=== PATIENT | male | born 1945 | race Caucasian/White ===

== ENCOUNTER 2017-04-06 15:43 | Inpatient (IN) ==
[2017-04-06] MEDS ORDERED: IOPAMIDOL 100 ML BOTTLE IJ ONE (15:44)
[2017-04-06] MEDS ORDERED: 0.9 % SODIUM CHLORIDE 1,000 ML IV ONE ×2 (16:01→21:20)
--- NOTE | 2017-04-06 16:29 | Emergency Department Note ---
Abdominal Pain HPI - General Chief Complaint: Abdominal Pain Stated Complaint: Abdominal pain, gas Time Seen by Provider: 04/06/17 15:54 Source: patient Mode of arrival: ambulatory Limitations: no limitations - History of Present Illness HPI Narrative: 72-year-old male presents with diarrhea that has been worsening in the last 2 days. He states 2 weeks ago he saw his doctor and was prescribed 2 antibiotics for diverticulitis. He states during the treatment for diverticulitis he had some dark stools but that improved. He states since yesterday and late last night he has been having a lot of watery diarrhea. He states he did have some firming of his stool a couple days after he finished his antibiotic and then it got worse. He feels as though he has to go to the bathroom often. He denies blood in his stool. He states it is very watery. He had an elevated temperature at home. No nausea or vomiting. No urinary symptoms. He takes lisinopril, baby aspirin, and cholesterol medication. He has been on lisinopril for 2 months. He states today he felt wiped out. He denies chest pain and had some shortness of breath earlier today but feels fine now. He denies dizziness. He feels as though he has diffuse abdominal cramping. Had a 101 degree temp at home. He was taking Cipro twice a day and Flagyl 3 times a day for his diverticulitis. - Related Data Home Medications Medication Instructions Recorded Confirmed Aspirin [Adult Low Dose Aspirin EC] 81 mg PO DAILY 04/06/17 04/06/17 Atorvastatin [Lipitor] 10 mg PO HS 04/06/17 04/06/17 Previous Rx's Medication Instructions Recorded Lisinopril [Zestril] 10 mg PO DAILY #60 tablet 12/14/16 Allergies Allergy/AdvReac Type Severity Reaction Status Date / Time No Known Drug Allergies Allergy Verified 04/06/17 15:47 Review of Systems All systems ED: reviewed and negative except as stated. Abdominal Pain PMH - Past Medical History Medical history: Reports: migraine, other (diverticulitis) Surgical history ED: Reports: non-contributory Psychiatric history: Reports: no psych history Family history: Reports: no significant family history - Social History Smoking status: Never smoker Physical Exam - General Limitations: no limitations General appearance: alert, in no apparent distress - Head Head exam: atraumatic - Eye Eye exam: Present: normal appearance. Absent: conjunctival injection - Neck Neck exam: Present: normal inspection, full ROM - Chest Chest inspection: Present: normal inspection - Respiratory Respiratory exam: Present: normal lung sounds bilaterally - Cardiovascular Cardiovascular exam: Present: tachycardia, normal heart sounds - Abdominal Exam Abdominal exam: Present: soft, tenderness, normal bowel sounds. Absent: distention, psoas sign, heel tap sign Abdominal tenderness: Present: LLQ, mild - Extremities Exam Extremities exam: Present: normal inspection, full ROM - Neurological Exam Neurological exam: Present: alert, oriented X3, CN II-XII intact - Psychiatric Psychiatric exam: Present: normal affect, normal mood - Skin Skin exam: Present: warm, dry, intact Course Course Narrative: Dr. Cabello will admit the patient - Reevaluation(s) Reevaluation #1: No longer having abdominal pain. Nontender on palpation. He had one episode of diarrhea so far. Blood pressure improved. Pulse still elevated. Time: 18:15 Reevaluation #2: He developed a fever of 103.5 and was given 650mg of Tylenol. He still was feeling well but had hot flashes Time: 20:10 Vital Signs Temperature 98.8 F 04/06/17 15:44 Pulse Rate 128 H 04/06/17 15:44 Respiratory Rate 20 04/06/17 15:44 Blood Pressure 131/72 04/06/17 15:44 Pulse Oximetry (%) 96 04/06/17 15:44 Temperature 100.5 F H 04/06/17 19:55 Pulse Rate 120 H 04/06/17 20:24 Respiratory Rate 21 04/06/17 20:24 Blood Pressure 98/73 04/06/17 20:16 Pulse Oximetry (%) 92 04/06/17 20:24 Abdominal Pain - Lab Data Lab results reviewed: Yes I reviewed the patient's lab results. Result diagrams: 04/06/17 16:23 04/06/17 16:23 Lab Results 04/06/17 04/06/17 04/06/17 Range/Units 16:23 16:23 17:07 WBC 16.6 H (4.5-11.0) K/mcL RBC 5.55 (4.50-5.90) M/mcL Hgb 17.2 H (13.5-16.5) g/dL Hct 51.2 (41.0-55.0) % MCV 92.4 (80.0-100.0) fL MCH 31.0 (26.0-34.0) pg MCHC 33.6 (31.0-36.0) g/dL RDW 13.2 (11.5-14.5) % Plt Count 248 (140-440) K/mcL MPV 8.1 (7.4-10.4) fL Total Counted 100 Seg Neutrophils % 87 H (38-78) % Band Neutrophils % 8 (0-10) % Lymphocytes % 1 L (15-49) % Monocytes % (Manual) 4 (1-12) % Platelet Estimate Normal (NORMAL) RBC Morphology Normal (NORMAL) VBG Lactic Acid 1.7 (0.5-2.2) mmol/L Sodium 134 (133-145) mmol/L Potassium 3.8 (3.3-5.1) mmol/L Chloride 95 L (96-108) mmol/L Carbon Dioxide 24 (22-30) mmol/L Anion Gap 15.0 (8-16) BUN 9 (8-23) mg/dl Creatinine 1.3 H (0.7-1.2) mg/dl GFR Calculation 55 Glucose 121 H (70-105) mg/dL Calcium 9.1 (8.6-10.4) mg/dl Total Bilirubin 1.8 H (0.0-1.0) mg/dL AST 32 (0-37) U/l ALT 36 (0-40) U/l Alkaline Phosphatase 56 (39-117) U/L Total Protein 7.2 (5.9-8.4) gm/dL Albumin 4.1 (3.2-5.2) gm/dL Globulin 3.1 (2.2-3.7) gm/dL Albumin/Globulin Ratio 1.3 (1.0-2.3) Lipase 30 (7-60) U/L - Radiology Data Radiology results reviewed: Yes I reviewed the patient's radiology results. extensive diverticulitis versus colitis throughout the colon. Gallstones in the gallbladder. No Toxic megacolon, abscesses, or perforation Disposition Pt seen by MANAGER CLINICAL RESEARCH/PA only: No Clinical Impression: C. difficile enteritis Disposition: Xfer As Inpt ([facility]) Condition: Fair Referrals: Alber Mcgraw MD [Primary Care Provider] -
[2017-04-06] MEDS ORDERED: LACTATED RINGERS 1,000 ML IV ONE (16:36)
[2017-04-06 16:53] LABS: Mean Cell Volume 92.4 fL (80.0-100.0); Mean Corpuscular HGB Conc 33.6 g/dL (31.0-36.0); Platelet Count 248 K/mcL (140-440); RBC 5.55 M/mcL (4.50-5.90); Red Cell Distribution Width 13.2 % (11.5-14.5)
[2017-04-06 17:13] LABS: ALT/SGPT 36 U/l (0-40); Albumin 4.1 gm/dL (3.2-5.2); Albumin/Globulin Ratio 1.3 (1.0-2.3); Alkaline Phosphatase 56 U/L (39-117); Blood Urea Nitrogen 9 mg/dl (8-23); Lipase 30 U/L (7-60)
[2017-04-06 17:16] LABS: Band Neutrophils % 8 % (0-10); Lymphocytes % 1 % (15-49); Monocytes % (Manual) 4 % (1-12); Platelet Estimate NORMAL (NORMAL); RBC Morphology NORMAL (NORMAL); Segmented Neutrophils % 87 % (38-78)
[2017-04-06] MEDS ORDERED: metroNIDAZOLE 500 MG/100 ML BAG IV ONE (18:20)
[2017-04-06] MEDS ORDERED: ACETAMINOPHEN 325 MG TABLET PO ONE (19:08)
[2017-04-06] MEDS ORDERED: 0.9 % SODIUM CHLORIDE 250 ML IV ONE (19:23)
--- NOTE | 2017-04-06 20:43 | Internal Med History&Physical ---
Medical - H&P: HPI Patient information: Note initiated : 04/06/17 at 8:38 pm Service Date, if different from initiated Date: [] Patient: Jose Singleton 72 y/o M admitted on for Abdominal pain, gas. Chief Complaint: [] History of present illness: Mr. Singleton is a 72 year old Male, with h/o diverticulosis and diverticulitis in the past, presents to the ER with complaints of abdominal pain and diarrhea. The patient notes that 2 weeks ago he had pain in the abdomen, left lower quadrant, similar to what he had when he had diverticulitis, the pain was sharp , associated with BM, the patient was seen by his PCP who prescribed some antibiotics for the patient. The patient noted some relief from the pain, but then had a relapse, notes that relapse of symptoms was associated with profuse diarrhea, stool was 12 times per day, watery, no blood or mucous. Notes pain still present in the left lower quadrant. Admits to fever x 1 day. The patient therefore presented to the ER today In the ER he was tachycardic, wbc was elevated, Creat 1.3, He was given fluids, Cdiff was positive. Given high grade fever of 103 in ER< CT Abdomen and pelvis done which is reported as diverticulitis present. (official read pending this report was verbally given by Dr Healy radiologist to ER physician) Patient was given IV flagyl and admitted to the hospital for further management. The patients was present in the room who corroborated the patients history. All systems: reviewed and no additional remarkable complaints except as stated - Constitutional Constitutional: Present: fever(s), malaise, weakness - EENT Eyes: Absent: diplopia, loss of vision, spots in vision, tunnel vision Ears: Absent: ear discharge, ear pain Nose, mouth and throat: Absent: abnormal hearing, disequilibrium - Cardiovascular Cardiovascular: Absent: chest pain, chest pain at rest, dyspnea on exertion, palpatations - Respiratory Respiratory: Present: cough (chr associated with VERO as per pt ). Absent: hemoptysis, wheezing - Gastrointestinal Gastrointestinal: Present: belching, bloating, change in bowel habits, change in stool character, cramping, diarrhea, loose stools, tenesmus. Absent: hematemesis, hematochezia, vomiting - Genitourinary Genitourinary: Absent: difficulty urinating, nocturia, urinary frequency, urinary hesitancy, urinary incontinence, urinary urgency - Musculoskeletal Musculoskeletal: Absent: arthralgias, back pain, joint swelling - Integumentary Integumentary: Absent: rash, jaundice - Neurological Neurological: Absent: disequilibrium, dizziness, headache(s), syncope, tremor(s) , vertigo, weakness - Psychiatric Psychiatric: Absent: anxiety, depression, mood swings, panic attacks - Endocrine Endocrine: Absent: polydipsia, polyphagia, polyuria - Hematologic/Lymphatic Hematologic/Lymphatic: Absent: easy bleeding, easy bruising - Allergic/Immunologic Allergic/Immunologic: Absent: seasonal rhinorrhea, uticaria, wheezing Medical - H&P: PMH Medical history: HTN HLD Surgical history: No major surgical history Family history: reviewed and not pertinent Social history: non smoker rare etoh no recreational substance use. Medical - H&P: Meds Home Medications Medication Instructions Recorded Confirmed Type Lisinopril [Zestril] 10 mg PO DAILY #60 tablet 12/14/16 04/06/17 Rx Aspirin [Adult Low Dose Aspirin EC] 81 mg PO DAILY 04/06/17 04/06/17 History Atorvastatin [Lipitor] 10 mg PO HS 04/06/17 04/06/17 History Allergies Allergy/AdvReac Type Severity Reaction Status Date / Time No Known Drug Allergies Allergy Verified 04/06/17 15:47 Medical - H&P: Exam - Constitutional Vitals: Temp Pulse Resp BP Pulse Ox 100.5 F H 120 H 21 98/73 92 04/06/17 19:55 04/06/17 20:24 04/06/17 20:24 04/06/17 20:16 04/06/17 20:24 Exam: GENERAL: The patient is a well-developed, well-nourished in no apparent distress. Is alert and oriented x3. VITAL SIGNS: Reviewed and as noted elsewhere. HEENT: Head is normocephalic and atraumatic. Extraocular muscles are intact. Pupils are equal, round, and reactive to light. Nares appeared normal. Mouth appears any without lesions. Mucous membranes are dry NECK: Normal to inspection, Supple, No lymphadenopathy or thyromegaly. LUNGS: Air entry equal on both sides, no wheezing, crackles or rhonchi noted. No accessory muscles of respiration HEART: tachyardic rate and rhythm normal, S1 and S2 heard, no Gallop, S3 or Rub Noted, No Gross murmur heard. ABDOMEN: Soft,very mild tenderness in the left lower quadrant if any, and nondistended. Positive bowel sounds. No hepatosplenomegaly was noted. EXTREMITIES: No cyanosis, clubbing, rash, lesions or edema. NEUROLOGIC: Cranial nerves II through XII are grossly intact. Motor and Sensory System Grossly Intact PSYCHIATRIC: Normal affect, Normal Mood. Appropriate Behavior. SKIN: No ulceration or wounds noted, No jaundice, No rash noted. Medical - H&P: Reslt - Labs CBC & Chem 7: 04/06/17 16:23 04/06/17 16:23 Labs: Short CBC 04/06/17 Range/Units 16:23 WBC 16.6 H (4.5-11.0) K/mcL Hgb 17.2 H (13.5-16.5) g/dL Hct 51.2 (41.0-55.0) % Plt Count 248 (140-440) K/mcL BMP 04/06/17 16:23 Sodium 134 Potassium 3.8 Chloride 95 L Carbon Dioxide 24 BUN 9 Creatinine 1.3 H Glucose 121 H Calcium 9.1 Liver Function 04/06/17 Range/Units 16:23 Total Bilirubin 1.8 H (0.0-1.0) mg/dL AST 32 (0-37) U/l ALT 36 (0-40) U/l Alkaline Phosphatase 56 (39-117) U/L Albumin 4.1 (3.2-5.2) gm/dL Medical - H&P: A/P - Narrative A/P Narrative: A/P Sepsis: lactic is normal, BP stable, low on presentation, reponding to fluids, hr elevated, still febrile. due to cdiff and diverticulitis, treat underlying etiology. Monitor on tele given persistant tachycarda, IV fluids. Severe Cdiff: IV flagyl and PO vancomycin for now, IV fluids, probiotics./ treatment for 2 weeks after last dose of cipro. Diverticulitis: CT scan reports Diverticulitis is still present, not sure if we can differenciate from colitis from diverticulitis, but for now IV cipro along with Cdiff treatment. NPO status, monitor, Will need Colonoscopy once infection subsides. HTN: Hold BP meds for now, resume once stable, HLD: continue statin DVT Hep SQ Full Code NPO diet.
[2017-04-06 20:46] LABS: Appearance,Urine CLEAR; Bacteria,Urine 0 /hpf (0); Bilirubin,Urine NEG (NEG); Color,Urine YELLOW; Glucose,Urine (UA) NEGATIVE (NEG); Leukocyte Esterase,Urine NEG /uL (NEG); Mucus,Urine FEW /hpf (0); Nitrate,Urine NEG (NEG); Protein,Urine NEG (NEG); Specific Gravity,Urine 1.017 (1.000-1.035); Urine Blood 0.03 mg/dL (<0.03); Urine RBC 4 /hpf (0-1); Urine Squamous Epithelial Cell 0 /hpf (0-4); Urine WBC < 1 /hpf (0-4); Urobilinogen,Urine NEG (NEG)
[2017-04-06] MEDS ORDERED: IPRATROPIUM/ALBUTEROL 3 ML AMPUL.NEB NEB PRN (21:20)
[2017-04-06] MEDS ORDERED: NALOXONE HCL 0.4 MG/ML VIAL IV PRN (21:20)
[2017-04-06] MEDS ORDERED: ONDANSETRON 4 MG/2 ML VIAL IV PRN (21:20)
[2017-04-06] MEDS: 0.9 % SODIUM CHLORIDE 1,000 ML IV SCH (22:37)
[2017-04-06] MEDS ORDERED: VANCOMYCIN 1 GM VIAL ONE (23:12)
[2017-04-06] MEDS: CIPROFLOXACIN 400 MG/200 ML BAG IV SCH (23:12)
[2017-04-06] MEDS: VANCOMYCIN ORAL SOL 1,000 MG/10 ML BOTTLE PO SCH (23:13)
[2017-04-06] MEDS: HEPARIN 5,000 UNIT/ML VIAL SQ SCH (23:17)
[2017-04-07] MEDS: metroNIDAZOLE 500 MG/100 ML BAG IV SCH ×2 (05:19→13:38)
[2017-04-07] MEDS: ACETAMINOPHEN 325 MG TABLET PO PRN ×2 (05:32→13:35)
[2017-04-07 06:29] LABS: Basophils # (Auto) 0 K/mcL (0.0-0.3); Basophils % (Auto) 0 % (0.0-2.0); Eosinophils # (Auto) 0 K/mcL (0.0-0.7); Eosinophils % (Auto) 0 % (0.0-7.0); Granulocytes % (Auto) 90.4 % (38.0-78.0); Lymphocytes # (Auto) 0.5 K/mcL (1.5-4.8); Mean Cell Volume 93.9 fL (80.0-100.0); Mean Corpuscular HGB Conc 33.1 g/dL (31.0-36.0); Mean Corpuscular Hemoglobin 31.1 pg (26.0-34.0); Monocytes # (Auto) 0.8 K/mcL (0.1-0.9); Monocytes % (Auto) 5.6 % (1.0-12.0); Platelet Count 199 K/mcL (140-440); RBC 4.85 M/mcL (4.50-5.90); Red Cell Distribution Width 13.2 % (11.5-14.5)
[2017-04-07] MEDS: 0.9 % SODIUM CHLORIDE 1,000 ML IV SCH ×4 (06:35→18:29)
[2017-04-07 07:06] LABS: ALT/SGPT 24 U/l (0-40); Albumin 3.2 gm/dL (3.2-5.2); Albumin/Globulin Ratio 1.2 (1.0-2.3); Alkaline Phosphatase 53 U/L (39-117); Bilirubin,Direct < 0.2 mg/dL (0.0-0.3); Blood Urea Nitrogen 7 mg/dl (8-23); Gamma Glutamyl Transpeptidase 16 U/L (8-61); Magnesium 1.7 mg/dL (1.6-2.5); Uric Acid 5.6 mg/dL (2.5-8.0)
--- NOTE | 2017-04-07 08:49 | Cat Scan Report ---
CLINICAL INFORMATION: Fever diarrhea left lower quadrant pain COMPARISON: 10/23/[address] TECHNIQUE: Following enteric contrast, 80 cc of Isovue-300 were injected intravenously, and 60 seconds later, 2.5 mm helical slices were obtained from the mid heart through the subtrochanteric regions. Following reconstruction, 2.5 mm sagittal, coronal and axial reformatted images were processed and reviewed at bone, lung and soft tissue windows. Five minutes later, 5 mm helical slices were obtained from the mid heart through the kidneys and viewed at soft tissue windows. FINDINGS: Lung bases show no abnormality - no effusion. The visualized heart is grossly normal. Images should the abdomen show multiple stones within the gallbladder as previously seen. The gallbladder is otherwise normal - no evidence of wall thickening to suggest cholecystitis. Intrahepatic and common bile ducts are normal caliber CBD is 5 mm. The liver, pancreas, both adrenal glands, spleen and aorta including aortic branches are normal in size configuration and attenuation without focal lesion. Simple cysts in both kidneys are stable. Images should the pelvis show urinary bladder, prostate and seminal vesicles to be normal. There is mild wall thickening and pericolonic inflammation involving the distal one half of the descending colon and nearly the entire sigmoid colon. There are multiple diverticuli within the sigmoid colon and a few of the descending colon. The remaining colon, appendix, small bowel and stomach are normal. Bone windows show no minimal chronic wedging of the T12 vertebral body which is stable from 2013. No seen osseous abnormality IMPRESSION: 1. Mild inflammatory changes within the distal one half of the descending colon and most of the sigmoid colon. There are multiple diverticuli in the sigmoid colon. This could indicate diverticulitis, but other causes of infectious or inflammatory colitis are also possible. There is no evidence of abscess, fistula free air or other complication. 2. Cholelithiasis - stable Interpreted and Authenticated by: Bobby Adam 04/07/17
[2017-04-07] MEDS ORDERED: POTASSIUM PHOSPHATE 20 MEQ in DEXTROSE 5% IN WATER 250 ML IV ONE (08:59)
[2017-04-07] MEDS: VANCOMYCIN ORAL SOL 1,000 MG/10 ML BOTTLE PO SCH ×4 (09:29→23:05)
[2017-04-07] MEDS: CIPROFLOXACIN 400 MG/200 ML BAG IV SCH ×2 (09:29→23:04)
[2017-04-07] MEDS: HEPARIN 5,000 UNIT/ML VIAL SQ SCH ×2 (09:34→23:04)
--- NOTE | 2017-04-07 09:49 | Internal Med Progress Note ---
Medical - PN: Subj Patient information: Note initiated : 04/07/17 at 9:45 am Service Date, if different from initiated Date: [] Patient: Jose Singleton 72 y/o M admitted on 04/06/17 for Abdominal pain, gas. Chief Complaint: [] Interval history: Mr. Singleton is a 72 year old Male, with h/o diverticulosis and diverticulitis in the past, presents to the ER with complaints of abdominal pain and diarrhea. The patient notes that 2 weeks ago he had pain in the abdomen, left lower quadrant, similar to what he had when he had diverticulitis, the pain was sharp , associated with BM, the patient was seen by his PCP who prescribed some antibiotics for the patient. The patient noted some relief from the pain, but then had a relapse, notes that relapse of symptoms was associated with profuse diarrhea, stool was 12 times per day, watery, no blood or mucous. Notes pain still present in the left lower quadrant. Admits to fever x 1 day. The patient therefore presented to the ER today In the ER he was tachycardic, wbc was elevated, Creat 1.3, He was given fluids, Cdiff was positive. Given high grade fever of 103 in ER< CT Abdomen and pelvis done which is reported as diverticulitis present. (official read pending this report was verbally given by Dr Healy radiologist to ER physician) Patient was given IV flagyl and admitted to the hospital for further management. The patients was present in the room who corroborated the patients history. 04/07: Patient seen examined, no acute overnight issues, still has some fever, had 4 BM last night but feels frequency is coming down, WBC count is trending down, he thinks he will be able to tolerate PO diet. Pertinent ROS: Denies headache, dizziness Denies chest pain, palpitations Denies cough or shortness of breath Denies abdominal pain, nausea or vomiting. diarrhea improving. - Constitutional Vitals: Vital Signs Temp Pulse Resp BP Pulse Ox 98.2 F 129 H 20 114/75 96 04/07/17 08:00 04/06/17 21:20 04/07/17 08:00 04/07/17 08:00 04/07/17 08:00 Period Temp Pulse Resp BP Sys/Whitaker Pulse Ox Last 24 Hr 98.2 F-100.8 F 16-20 106-115/67-77 93-96 Intake and Output 04/06/17 04/07/17 04/07/17 21:59 05:59 13:59 Intake Total 1200 / 1200 1275 / 1275 Output Total 500 / 500 Balance 700 / 700 1275 / 1275 Weight 215 lb Intake & Output: Intake & Output 04/06/17 04/07/17 04/07/17 21:59 05:59 13:59 Intake Total 1200 / 1200 1275 / 1275 Output Total 500 / 500 Balance 700 / 700 1275 / 1275 Weight 215 lb Intake: IV 1200 / 1200 1275 / 1275 Sodium Chloride 0.9% 1, 1000 / 1000 000 ml @ 150 mls/hr IV . Q6H40M NICKI Rx#:[id number] Output: Void Amount 500 / 500 Other: # Voids 1 # Bowel Movements 5 Exam: Constitutional; Afebrile, cooperative, alert, not in distress. Eyes- No icterus, , No periorbital swelling Ears- Ext ear normal, hearing normal to conversation. Neck- Midline trachea, supple Respiratory system: Air Entry equal on both sides, No crackles or wheezing, no rhonchi. CVS- Rate rhythm regular, S1,S2 heard, no gallop, no rub. (tachycardia improving ) Abdomen- Soft nontender abdomen, no organomegaly, no tenderness, no guarding or rigidity, BEE RANCHER- AOOx3, moving all extremities, no gross focal deficit noted. Medical - PN: Obj Da - Labs CBC & Chem 7: 04/07/17 03:55 04/07/17 03:55 Labs: Abnormal Lab Results 04/07/17 04/07/17 03:55 03:55 WBC 13.7 H Gran % 90.4 H Lymph % (Auto) 4.0 L Gran # 12.4 H Lymph # (Auto) 0.5 L Carbon Dioxide 20 L BUN 7 L Calcium 7.7 L Phosphorus 1.7 L Total Bilirubin 1.3 H Meds: Medications Acetaminophen (Tylenol) 650 mg PO Q6HP PRN PRN Reason: PAIN/FEVER > 101 Last Admin: 04/07/17 05:32 Dose: 650 mg Albuterol/Ipratropium (Duoneb) 3 ml NEB Q4HRT PRN PRN Reason: Shortness Of Breath Or Wheezing Heparin Sodium (Porcine) (Heparin) 5,000 unit SQ Q12 [facility] Last Admin: 04/07/17 09:34 Dose: 5,000 unit Sodium Chloride (Sodium Chloride 0.9%) 1,000 mls @ 150 mls/hr IV .Q6H40M [facility] Last Admin: 04/07/17 06:35 Dose: 150 mls/hr Ciprofloxacin (Cipro) 400 mg in 200 mls @ 200 mls/hr IV Q12H [facility] Last Admin: 04/07/17 09:29 Dose: 200 mls/hr Metronidazole (Flagyl) 500 mg in 100 mls @ 100 mls/hr IV Q8H [facility] Last Infusion: 04/07/17 06:30 Dose: Infused Potassium Phosphate 20 meq/ (Dextrose) 254.5455 mls @ 127.273 mls/hr IV ONCE ONE Stop: 04/07/17 10:58 Naloxone HCl (Narcan) 0.1 mg IV Q2MIN PRN PRN Reason: Opiate Reversal Ondansetron HCl (Zofran) 4 mg IV Q4HP PRN PRN Reason: Nausea And Vomiting Vancomycin HCl (Vancomycin Oral Rhonda) 250 mg PO QID [facility] Last Admin: 04/07/17 09:29 Dose: 250 mg Medical - PN: A/P - Time Spent With Patient Total time spent is greater than 50% in coordination of care (as documented) at patient's floor/unit and/or counseling patient: - Narrative A/P Narrative: A/P Sepsis: improving, lactate normal, bp stable, treat underlying infection. Severe Cdiff: Diarrhea present but better as per patient. Continue with IV flagyl and PO vancomycin for now, IV fluids, probiotics./ treatment for 2 weeks after last dose of cipro. Diverticulitis: CT scan reports Diverticulitis is still present, not sure if we can differentiate from colitis from diverticulitis, but for now IV cipro along with Cdiff treatment. Clear liquid diet today Colonoscopy as outpatient. HTN: Hold BP meds for now, resume once stable, HLD: continue statin DVT Hep SQ Full Code Advance to clear liquid diet for now. Medical - PN: Qual - VTE Deep Vein Thrombosis/Pulmonary Embolism Present on Admission: No
[2017-04-07] MEDS: LACTOBACILLUS 1 CAPSULE PO SCH ×2 (10:44→23:05)
[2017-04-08] MEDS: metroNIDAZOLE 500 MG/100 ML BAG IV SCH ×4 (00:08→22:09)
[2017-04-08] MEDS: ACETAMINOPHEN 325 MG TABLET PO PRN (00:18)
[2017-04-08] MEDS: 0.9 % SODIUM CHLORIDE 1,000 ML IV SCH ×3 (02:48→13:52)
[2017-04-08 06:05] LABS: Basophils # (Auto) 0 K/mcL (0.0-0.3); Basophils % (Auto) 0.3 % (0.0-2.0); Eosinophils # (Auto) 0.1 K/mcL (0.0-0.7); Eosinophils % (Auto) 1.3 % (0.0-7.0); Granulocytes % (Auto) 81.1 % (38.0-78.0); Lymphocytes # (Auto) 0.9 K/mcL (1.5-4.8); Lymphocytes % (Auto) 10.8 % (15.5-49.0); Mean Cell Volume 93.6 fL (80.0-100.0); Mean Corpuscular HGB Conc 33.3 g/dL (31.0-36.0); Mean Corpuscular Hemoglobin 31.2 pg (26.0-34.0); Monocytes # (Auto) 0.5 K/mcL (0.1-0.9); Monocytes % (Auto) 6.5 % (1.0-12.0); Platelet Count 197 K/mcL (140-440); RBC 4.57 M/mcL (4.50-5.90); Red Cell Distribution Width 13.8 % (11.5-14.5)
[2017-04-08 06:44] LABS: ALT/SGPT 26 U/l (0-40); Albumin/Globulin Ratio 1.2 (1.0-2.3); Alkaline Phosphatase 43 U/L (39-117); Bilirubin,Direct < 0.2 mg/dL (0.0-0.3); Blood Urea Nitrogen 4 mg/dl (8-23); Gamma Glutamyl Transpeptidase 10 U/L (8-61); Magnesium 1.9 mg/dL (1.6-2.5); Uric Acid 4.8 mg/dL (2.5-8.0)
[2017-04-08] MEDS: VANCOMYCIN ORAL SOL 1,000 MG/10 ML BOTTLE PO SCH ×4 (09:28→20:34)
[2017-04-08] MEDS ORDERED: NEUTRA PHOS 1 PACKET PO SCH (09:36)
[2017-04-08] MEDS: CIPROFLOXACIN 400 MG/200 ML BAG IV SCH ×2 (09:39→20:33)
[2017-04-08] MEDS: LACTOBACILLUS 1 CAPSULE PO SCH ×2 (09:40→20:34)
[2017-04-08] MEDS: HEPARIN 5,000 UNIT/ML VIAL SQ SCH ×2 (09:40→21:07)
[2017-04-08] MEDS ORDERED: IPRATROPIUM/ALBUTEROL 3 ML AMPUL.NEB NEB PRN (10:44)
[2017-04-08] MEDS ORDERED: NALOXONE HCL 0.4 MG/ML VIAL IV PRN (10:44)
[2017-04-08] MEDS ORDERED: ONDANSETRON 4 MG/2 ML VIAL IV PRN (10:44)
[2017-04-08] MEDS ORDERED: ACETAMINOPHEN 325 MG TABLET PO PRN (10:44)
--- NOTE | 2017-04-08 14:35 | Internal Med Progress Note ---
Medical - PN: Subj Patient information: Note initiated : 04/08/17 at 2:33 pm Service Date, if different from initiated Date: [] Patient: Jose Singleton 72 y/o M admitted on 04/06/17 for Abdominal pain, gas. Chief Complaint: [] Interval history: Mr. Singleton is a 72 year old Male, with h/o diverticulosis and diverticulitis in the past, presents to the ER with complaints of abdominal pain and diarrhea. The patient notes that 2 weeks ago he had pain in the abdomen, left lower quadrant, similar to what he had when he had diverticulitis, the pain was sharp , associated with BM, the patient was seen by his PCP who prescribed some antibiotics for the patient. The patient noted some relief from the pain, but then had a relapse, notes that relapse of symptoms was associated with profuse diarrhea, stool was 12 times per day, watery, no blood or mucous. Notes pain still present in the left lower quadrant. Admits to fever x 1 day. The patient therefore presented to the ER today In the ER he was tachycardic, wbc was elevated, Creat 1.3, He was given fluids, Cdiff was positive. Given high grade fever of 103 in ER< CT Abdomen and pelvis done which is reported as diverticulitis present. (official read pending this report was verbally given by Dr Healy radiologist to ER physician) Patient was given IV flagyl and admitted to the hospital for further management. The patients was present in the room who corroborated the patients history. 04/07: Patient seen examined, no acute overnight issues, still has some fever, had 4 BM last night but feels frequency is coming down, WBC count is trending down, he thinks he will be able to tolerate PO diet. 04/08: patient seen and examined, no acute overnight events, patient's stool is slowly forming. Diarrhea is improving. No abdominal pain anymore. Still had a low-grade temperature this morning. Otherwise, no other issues. He was able to tolerate liquid diet well. Plan to advance diet. Pertinent ROS: Denies headache, dizziness Denies chest pain, palpitations Denies cough or shortness of breath Denies abdominal pain, nausea or vomiting. - Constitutional Vitals: Vital Signs Temp Pulse Resp BP Pulse Ox 96.5 F L 92 H 16 125/76 98 04/08/17 12:00 04/07/17 08:00 04/08/17 12:00 04/08/17 12:00 04/08/17 12:00 Period Temp Pulse Resp BP Sys/Whitaker Pulse Ox Last 24 Hr 96.5 F-99.3 F 16-20 101-149/70-86 93-98 Intake and Output 04/08/17 04/08/17 04/08/17 05:59 13:59 21:59 Intake Total 1300 / 1300 2570 / 2570 Output Total 1000 / 1000 1100 / 1100 600 / 600 Balance 300 / 300 1470 / 1470 -600 / -600 Intake & Output: Intake & Output 04/08/17 04/08/17 04/08/17 05:59 13:59 21:59 Intake Total 1300 / 1300 2570 / 2570 Output Total 1000 / 1000 1100 / 1100 600 / 600 Balance 300 / 300 1470 / 1470 -600 / -600 Intake: IV 1300 / 1300 1270 / 1270 Sodium Chloride 0.9% 1, 1000 / 1000 000 ml @ 150 mls/hr IV . Q6H40M [facility] Rx#:[id number] Oral 1300 / 1300 Output: Void Amount 1000 / 1000 1100 / 1100 600 / 600 Other: Meal Lunch Percent of Meal Consumed 100% Feeding Ability Independent # Voids 2 4 # Bowel Movements 3 1 Exam: Constitutional; Afebrile, cooperative, alert, not in distress. Eyes- No icterus, , No periorbital swelling Ears- Ext ear normal, hearing normal to conversation. Neck- Midline trachea, supple Respiratory system: Air Entry equal on both sides, No crackles or wheezing, no rhonchi. CVS- Rate rhythm regular, S1,S2 heard, no gallop, no rub. Abdomen- Soft nontender abdomen, no organomegaly, no tenderness, no guarding or rigidity, WAREHOUSE WORKER- AOOx3, moving all extremities, no gross focal deficit noted. Medical - PN: Obj Da - Labs CBC & Chem 7: 04/08/17 03:50 04/08/17 03:50 Labs: Abnormal Lab Results 04/08/17 04/08/17 04/07/17 03:50 03:50 03:55 WBC Gran % 81.1 H Lymph % (Auto) 10.8 L Gran # Lymph # (Auto) 0.9 L Carbon Dioxide 20 L BUN 4 L 7 L Calcium 7.4 L 7.7 L Phosphorus 1.8 L 1.7 L Total Bilirubin 1.3 H Total Protein 5.5 L Albumin 3.0 L 04/07/17 03:55 WBC 13.7 H Gran % 90.4 H Lymph % (Auto) 4.0 L Gran # 12.4 H Lymph # (Auto) 0.5 L Carbon Dioxide BUN Calcium Phosphorus Total Bilirubin Total Protein Albumin Meds: Medications Acetaminophen (Tylenol) 650 mg PO Q6HP PRN PRN Reason: PAIN/FEVER > 101 Albuterol/Ipratropium (Duoneb) 3 ml NEB Q4HRT PRN PRN Reason: Shortness Of Breath Or Wheezing Heparin Sodium (Porcine) (Heparin) 5,000 unit SQ Q12 [facility] Ciprofloxacin (Cipro) 400 mg in 200 mls @ 200 mls/hr IV Q12H [facility] Metronidazole (Flagyl) 500 mg in 100 mls @ 100 mls/hr IV Q8H [facility] Last Admin: 04/08/17 13:52 Dose: 100 mls/hr Sodium Chloride (Sodium Chloride 0.9%) 1,000 mls @ 150 mls/hr IV .Q6H40M [facility] Last Admin: 04/08/17 13:52 Dose: 150 mls/hr Lactobacillus Rhamnosus (Culturelle) 1 cap PO BID [facility] Naloxone HCl (Narcan) 0.1 mg IV Q2MIN PRN PRN Reason: Opiate Reversal Ondansetron HCl (Zofran) 4 mg IV Q4HP PRN PRN Reason: Nausea And Vomiting Potassium/Phosphorus/Sodium (Neutra Phos) 1 packet PO BID [facility] Vancomycin HCl (Vancomycin Oral Rhonda) 250 mg PO QID [facility] Last Admin: 04/08/17 13:00 Dose: 250 mg Medical - PN: A/P - Time Spent With Patient Total time spent is greater than 50% in coordination of care (as documented) at patient's floor/unit and/or counseling patient: - Narrative A/P Narrative: A/P Sepsis: nearly resolved Severe Cdiff: Diarrhea improving, continue iV flagyl and vancomycin. Diverticulitis: on iv cipro for now, plan for 7 days of cipro then continue vancomycin for additioanl 2 weeks. HTN: Hold BP meds for now, resume once stable, HLD: continue statin DVT Hep SQ Full Code Advance to full liquid diet, and mech soft diet in pm if able to tolerate Medical - PN: Qual - VTE Deep Vein Thrombosis/Pulmonary Embolism Present on Admission: No
[2017-04-08] MEDS: NEUTRA PHOS 1 PACKET PO SCH (20:34)
[2017-04-09] MEDS: 0.9 % SODIUM CHLORIDE 1,000 ML IV SCH ×3 (00:13→08:17)
[2017-04-09] MEDS: metroNIDAZOLE 500 MG/100 ML BAG IV SCH (05:03)
[2017-04-09 07:33] LABS: Basophils # (Auto) 0 K/mcL (0.0-0.3); Basophils % (Auto) 0.8 % (0.0-2.0); Eosinophils # (Auto) 0.2 K/mcL (0.0-0.7); Eosinophils % (Auto) 3.1 % (0.0-7.0); Granulocytes % (Auto) 65.2 % (38.0-78.0); Lymphocytes % (Auto) 19.7 % (15.5-49.0); Mean Cell Volume 92.2 fL (80.0-100.0); Mean Corpuscular Hemoglobin 31.3 pg (26.0-34.0); Monocytes # (Auto) 0.6 K/mcL (0.1-0.9); Monocytes % (Auto) 11.2 % (1.0-12.0); Platelet Count 220 K/mcL (140-440); RBC 4.55 M/mcL (4.50-5.90); Red Cell Distribution Width 13.4 % (11.5-14.5)
[2017-04-09 07:43] LABS: ALT/SGPT 27 U/l (0-40); Albumin 3.1 gm/dL (3.2-5.2); Albumin/Globulin Ratio 1.3 (1.0-2.3); Alkaline Phosphatase 40 U/L (39-117); Bilirubin,Direct < 0.2 mg/dL (0.0-0.3); Blood Urea Nitrogen 4 mg/dl (8-23); Gamma Glutamyl Transpeptidase 11 U/L (8-61); Magnesium 1.9 mg/dL (1.6-2.5); Uric Acid 4.9 mg/dL (2.5-8.0)
[2017-04-09] MEDS: NEUTRA PHOS 1 PACKET PO SCH (08:11)
[2017-04-09] MEDS: HEPARIN 5,000 UNIT/ML VIAL SQ SCH (08:12)
[2017-04-09] MEDS: VANCOMYCIN ORAL SOL 1,000 MG/10 ML BOTTLE PO SCH ×2 (08:12→12:36)
[2017-04-09] MEDS: LACTOBACILLUS 1 CAPSULE PO SCH (08:12)
[2017-04-09] MEDS: CIPROFLOXACIN 400 MG/200 ML BAG IV SCH (09:40)
--- NOTE | 2017-04-09 10:35 | Discharge Summary ---
Medical - DS: Prov Patient information: Note initiated : 04/09/17 at 10:31 am Service Date, if different from initiated Date: [] Patient: Jose Singleton 72 y/o M admitted on 04/06/17 for Abdominal pain, gas. Chief Complaint: [] Date of admission: 04/06/17 21:21 Discharge date: 04/09/17 Primary care physician: Alber Mcgraw Admitting clinician: Junior Cabello Discharging clinician: Junior Cabello Medical - DS: Meds - Discharge Medications Prescriptions: Ciprofloxacin [Cipro] 500 mg PO BID #10 tablet metroNIDAZOLE [Metronidazole] 500 mg PO TID #15 tablet Vancomycin [Vancocin] 250 mg PO QID #76 capsule Active and Home Medications: Home Medications Lisinopril [Zestril] 10 mg PO DAILY #60 tablet 12/14/16 [Rx Confirmed 04/06/17 Last Taken Unknown] Aspirin [Adult Low Dose Aspirin EC] 81 mg PO DAILY 04/06/17 [History Confirmed 04/06/17 Last Taken Unknown] Atorvastatin [Lipitor] 10 mg PO HS 04/06/17 [History Confirmed 04/06/17 Last Taken Unknown] Medical - DS: Hosp Hospital course: Mr. Singleton is a 72 year old Male, with h/o diverticulosis and diverticulitis in the past, presents to the ER with complaints of abdominal pain and diarrhea. The patient notes that 2 weeks ago before his ER presentation he had pain in the abdomen, left lower quadrant, similar to what he had when he had diverticulitis, the pain was sharp, associated with BM, the patient was seen by his PCP who prescribed some antibiotics for the patient. The patient noted some relief from the pain, but then had a relapse, notes that relapse of symptoms was associated with profuse diarrhea, stool was 12 times per day, watery, no blood or mucous. Notes pain still present in the left lower quadrant. Admits to fever x 1 day. The patient therefore presented to the ER. In the ER he was tachycardic, wbc was elevated, Creat 1.3, He was given fluids, Cdiff was positive. Given high grade fever of 103 in ER< CT Abdomen and pelvis done which is reported as diverticulitis/ colitis present. Patient was given IV flagyl and admitted to the hospital for further management. The patient was treated with IV ciprofloxacin and IV flagyl for his diverticulitis and PO vancomycin for his C diff diarrhea. The patient was kept on clear liquid diet. The patient responded to treatment very well, and his labs normalized. He has been afebrile x > 24 hrs and no longer having diarrhea. He was able to tolerate po diet well, educated about need for low fiber diet. He will be discharged home with PO cipro and Flagyl for diverticulitis for additional 5 days (total of 7 days). he will Continue PO vancomycin for 2 weeks more so total of 19 more days. This has been explained to the patient and his At the time of discharge the patient is ambulatory, tolerating po well. Discharge diagnosis: Cdiff diarrhea, Colitis/ Diverticulitis - Time Spent with Patient Total time spent providing and/or coordinating discharge services: Less than 30 minutes Medical - DS: Exam - Constitutional Vitals: Vital Signs Temp Pulse Pulse Resp BP BP BP 04/09/17 07:47 04/09/17 06:55 97.6 F 16 102/73 04/09/17 03:37 98.3 F 88 16 122/76 04/09/17 00:00 98.5 F 95 H 121/77 04/08/17 20:00 98.2 F 91 H 134/77 04/08/17 16:18 98.6 F 20 133/80 04/08/17 16:00 96 H 04/08/17 12:00 96.5 F L 16 125/76 Pulse Ox 04/09/17 07:47 95 04/09/17 06:55 97 04/09/17 03:37 96 04/09/17 00:00 94 04/08/17 20:00 96 04/08/17 16:18 92 04/08/17 16:00 04/08/17 12:00 98 Intake and Output 04/08/17 04/09/17 04/09/17 21:59 05:59 13:59 Intake Total 1540 / 1540 100 / 100 1000 / 1000 Output Total 1974 900 / 900 Balance -435 / -435 -800 / -800 1000 / 1000 Intake: IV 1300 / 1300 100 / 100 1000 / 1000 Sodium Chloride 0.9% 1, 1000 / 1000 1000 / 1000 000 ml @ 150 mls/hr IV . Q6H40M [facility] Rx#:[id number] Oral 240 / 240 Output: Void Amount 1974 900 / 900 Other: Meal Dinner Percent of Meal Consumed 75% Feeding Ability Independent # Voids 3 2 # Bowel Movements 1 Weight 227 lb 8 oz Additional comments: Constitutional; Afebrile, cooperative, alert, not in distress. Eyes- No icterus, , No periorbital swelling Ears- Ext ear normal, hearing normal to conversation. Neck- Midline trachea, supple Respiratory system: Air Entry equal on both sides, No crackles or wheezing, no rhonchi. CVS- Rate rhythm regular, S1,S2 heard, no gallop, no rub. Abdomen- Soft nontender abdomen, no organomegaly, no tenderness, no guarding or rigidity, FIRMWARE ENGINEER- AOOx3, moving all extremities, no gross focal deficit noted. Medical - DS: Data Procedures and tests throughout hospitalization: CT abdomen IMPRESSION: 1. Mild inflammatory changes within the distal one half of the descending colon and most of the sigmoid colon. There are multiple diverticuli in the sigmoid colon. This could indicate diverticulitis, but other causes of infectious or inflammatory colitis are also possible. There is no evidence of abscess, fistula free air or other complication. 2. Cholelithiasis - stable Labs on day of discharge: Labs from last 24 hours 04/09/17 04/09/17 05:55 05:55 WBC 5.2 RBC 4.55 Hgb 14.3 Hct 42.0 MCV 92.2 MCH 31.3 MCHC 34.0 RDW 13.4 Plt Count 220 MPV 7.7 Gran % 65.2 Lymph % (Auto) 19.7 [place] % (Auto) 11.2 Eos % (Auto) 3.1 Baso % (Auto) 0.8 Gran # 3.4 Lymph # (Auto) 1.0 L [place] # (Auto) 0.6 Eos # (Auto) 0.2 Baso # (Auto) 0 Sodium 140 Potassium 3.3 Chloride 105 Carbon Dioxide 25 Anion Gap 10.0 BUN 4 L Creatinine 0.8 GFR Calculation 91 Glucose 97 Uric Acid 4.9 Calcium 7.8 L Phosphorus 2.3 L Magnesium 1.9 Total Bilirubin 0.6 Direct Bilirubin < 0.2 GGT 11 AST 27 ALT 27 Alkaline Phosphatase 40 Lactate Dehydrogenase 149 Total Protein 5.4 L Albumin 3.1 L Globulin 2.3 Albumin/Globulin Ratio 1.3 Triglycerides 76 Medical - DS: A/P - Patient/Caregiver Discharge Instructions Activity: increase activity as tolerated Diet: Dysphagia Advanced (Low Fiber diet) Prescriptions: Ciprofloxacin [Cipro] 500 mg PO BID #10 tablet metroNIDAZOLE [Metronidazole] 500 mg PO TID #15 tablet Vancomycin [Vancocin] 250 mg PO QID #76 capsule - Follow up Plan Follow up with: Alber Mcgraw MD [Primary Care Provider] - Disposition: Home, Self-Care Prognosis: Fair Rehab Potential: Fair I certify that the patient requires SNF services: No Overall status at discharge: patient is progressing back to baseline Medical - DS: Qual - VTE Deep Vein Thrombosis/Pulmonary Embolism Present on Admission: No
== END 2017-04-09 14:10 | disposition home or self-care (01) | DRG 872 ==
LOC: ED 15:43 → ICU 21:20 → MEDSUR 04-08 15:10
PROVIDERS: ADMIT Internal Medicine; ATTEND Internal Medicine